=== PATIENT | female | born 1975 | race Caucasian/White ===

== ENCOUNTER 2017-05-08 09:15 | Emergency (ER) | payer MEDICARE ==
[2017-05-08 09:26] VITALS: BP 128/77
--- NOTE | 2017-05-08 09:49 | ER Document Report ---
HPI - HPI Patient complains to provider of: Sinus congestion Pain Level: 3 Context: Patient is a 41-year-old female presents emergency department complaining of 5 days of sinus drainage that is dao in color with hot flashes and chills but denies any fevers. Otherwise she states she is a history of sinus infections that usually responds to edae-hyn-ipiyjyb cold medications and antibiotics. Patient otherwise denies any other ear pain, cough, difficulty breathing, chest pain, nausea or vomiting. Patient does have a history of rheumatoid arthritis and fibromyalgia. Past Medical History - Social History Smoking Status: Never Smoker Family History: Reviewed & Not Pertinent Vertical Provider Document - CONSTITUTIONAL Notes: PHYSICAL EXAM GENERAL: Alert, interacts well. HEENT: NCAT, pale conjunctiva, extraocular movements intact, pupils PERRL. external ear normal, no evidence of external auditory canal tenderness, blood/ drainage, cerumen impaction, TM intact without evidence of effusion, bulging, injection, MMM bilateral maxillary sinus tenderness without erythema.. NECK: Full range of motion. Supple. Trachea midline. LUNGS: Clear to auscultation bilaterally, no wheezes, rales, or rhonchi. No respiratory distress. HEART: Regular rate and rhythm. No murmurs, gallops, or rubs. ABDOMEN: Soft, nondistended, nontender. No guarding, rebound, or rigidity.. Bowel sounds present in all 4 quadrants. EXTREMITIES: Moves all 4 extremities spontaneously. No edema, radial and dorsalis pedis pulses 2/4 bilaterally. No cyanosis. NEUROLOGICAL: Alert and oriented x4. Normal speech. PSYCH: Normal affect, normal mood. SKIN: Warm, dry, normal turgor. No rashes or lesions noted. - INFECTION CONTROL TRAVEL OUTSIDE OF THE [place] IN LAST 30 DAYS: No - RESPIRATORY O2 Sat by Pulse Oximetry: 97 Course - Re-evaluation Re-evalutation: 05/08/17 9:45 Patient is a 41-year-old female who is hemodynamically stable, no acute distress afebrile. Patient states that this is consistent with her previous early presentations of the sinus infection. Will discharge home with a Z-Bradley. Otherwise discussed with patient [id number] management of nasal congestion and to follow-up with primary care. Discussed strict return precautions and patient is stable for discharge - Vital Signs Vital signs: Temp Pulse Resp BP Pulse Ox 98.1 F 74 20 128/77 H 97 05/08/17 09:25 05/08/17 09:25 05/08/17 09:25 05/08/17 09:25 05/08/17 09:25 Discharge - Discharge Clinical Impression: Sinus congestion Condition: Good Disposition: HOME, SELF-CARE Instructions: Sinusitis ([facility]) Prescriptions: Azithromycin [Zithromax 250 mg Tablet] 250 mg PO ASDIR PRN #6 tablet PRN Reason: Referrals: ELGIN GARCIA MD [[facility]] - Follow up in 1 week
== END 2017-05-08 09:54 | disposition home or self-care (01) ==
LOC: ER 09:15
DX: R09.81 Nasal congestion (principal)
CPT/HCPCS: 99283

== ENCOUNTER 2017-09-04 14:22 | Emergency (ER) | payer MEDICARE ==
--- NOTE | 2017-09-04 14:48 | ER Document Report ---
HPI - HPI Pain Level: 4 Notes: Patient is a 41-year-old female with a history of chronic knee pain and arthritis in her knee who presents to the ED complaining of pain behind her patella when she tries to straighten her leg. Patient states that she currently cannot straighten her leg because of the sharp pain and feels like it is stuck. Patient states that she did have laparoscopic surgeries in the past and was told that she may need a knee replacement, but she is too young at this time. Patient states that the pain will sometimes radiate to the right lateral side as well as posteriorly. Patient states that she is still able to limp around and weight-bear. She has not noticed any redness or swelling. She denies any recent illness. She denies any hormone replacement, recent surgery/ trauma, previous DVT/PE. patient does admit to smoking but denies IV drug use. She has no other concerns or complaints at this time. Patient moved from [place] recently to the area. Denies any headache, fever, URI, sore throat , chest pain, palpitations, syncope, cough, shortness of breath, wheeze, dyspnea , abdominal pain, nausea/vomiting/diarrhea, urinary retention, dysuria, hematuria, back pain, loss of control of bowel or bladder, numbness/tingling, saddle anesthesia, muscle paralysis/weakness, or rash. - ROS Systems Reviewed and Negative: Yes All other systems reviewed and negative Past Medical History - Social History Smoking Status: Current Some Day Smoker Family History: Reviewed & Not Pertinent Renal/ Medical History: Denies: Hx Peritoneal Dialysis Past Surgical History: Reports: Hx Cholecystectomy, Hx Hysterectomy, Hx Orthopedic Surgery - Right knee Vertical Provider Document - CONSTITUTIONAL Agree With Documented VS: Yes Notes: PHYSICAL EXAMINATION: GENERAL: Well-appearing, well-nourished and in no acute distress. LUNGS: Breath sounds clear to auscultation bilaterally and equal. No wheezes rales or rhonchi. HEART: Regular rate and rhythm without murmurs, rubs, gallops. Musculoskeletal: Rt knee: No erythema, swelling, or ecchymosis. The bones are not smooth around the border which most likely indicates arthritic changes. LROM to passive/active extension. Strength 5+/5. Saniya grossly negative. Ligaments grossly intact. Upon trying to place her in full extension, pt experienced pain described below her patella and could not allow for full extension. Pt is extending to approx 160 degrees otherwise. Pt noted to be able to weight bear with a slight limp. Fahad neg b/l. No calf erythema/ swelling/asymmetry. N/V intact distal. Extremities: No cyanosis, clubbing, or edema b/l. Peripheral pulses 2+. Capillary refill less than 3 seconds. NEUROLOGICAL: Normal speech. Normal sensory, motor exams PSYCH: Normal mood, normal affect. SKIN: Warm, Dry, normal turgor, no rashes or lesions noted. - INFECTION CONTROL TRAVEL OUTSIDE OF THE [place] IN LAST 30 DAYS: No Course - Re-evaluation Re-evalutation: 09/04/17 16:22 Patient is an afebrile, well-hydrated, 41-year-old female who presents to the ED with right knee pain, suspect secondary to arthritis. Vitals are acceptable. PE is otherwise unremarkable for any neurovascular compromise, obvious tendon/ligament rupture, obvious fracture/dislocation, septic joint, DVT. X-ray was unremarkable for any acute pathology aside from severe arthritis. Patient declined a knee immobilizer as well as crutches today as she has them at home. Recommend conservative measures otherwise for symptoms. Call orthopedics to schedule an appointment for further evaluation and management. Recheck with your PCM in 3-5 days as well. Return to the ED with any worsening/concerning symptoms otherwise as reviewed discharge. Patient is in agreement. - Vital Signs Vital signs: Temp Pulse Resp BP Pulse Ox 98.3 F 80 16 153/87 H 98 09/04/17 14:29 09/04/17 14:29 09/04/17 14:29 09/04/17 14:29 09/04/17 14:29 Discharge - Discharge Clinical Impression: Right knee pain Qualifiers: Chronicity: acute Qualified Code(s): M25.561 - Pain in right knee Condition: Stable Disposition: HOME, SELF-CARE Additional Instructions: Rest, Ice, Compression, Elevation Use splint at home as needed Tylenol/ibuprofen as needed Light stretches daily Strength exercises as able Moist heat and massage may help F/u with your PCP in 3-5 days for a recheck Call orthopedics to schedule an appointment for further evaluation and management Return to the ED with any worsening symptoms and/or development of fever, headache, chest pain, palpitations, syncope, shortness of breath, trouble breathing, abdominal pain, n/v/d, muscle weakness/paralysis, numbness/tingling, swelling, redness, or other worsening symptoms that are concerning to you. Forms: Elevated Blood Pressure Referrals: [facility] [Provider Group] - Follow up in 3-5 days
--- NOTE | 2017-09-04 16:02 | RADIOLOGY REPORT (SQ) ---
EXAM DESCRIPTION: KNEE RIGHT 4 VIEWS COMPLETED DATE/TIME: 09/04/2017 3:26 pm REASON FOR STUDY: right knee pain COMPARISON: None. NUMBER OF VIEWS: Four views. TECHNIQUE: AP, lateral, and both oblique radiographic images acquired of the right knee. LIMITATIONS: None. FINDINGS: MINERALIZATION: Normal. BONES: No acute fracture or dislocation. No worrisome bone lesions. JOINT: Severe joint space loss involving medial compartment with subchondral sclerosis and small oste ophytes. Mild degenerative changes involving the lateral compartment and the patellofemoral joint. No significant effusion. SOFT TISSUES: No soft tissue swelling. No radio-opaque foreign body. OTHER: No other significant finding. IMPRESSION: Severe degenerative changes involving the medial compartment with mild degenerative castillo ges involving the lateral compartment and patellofemoral joint. TECHNICAL DOCUMENTATION: JOB ID: [id number] [employer]- All Rights Reserved Reading location - IP/workstation name: [email or web address]
[2017-09-04 16:32] VITALS: BP 129/73
== END 2017-09-04 16:18 | disposition home or self-care (01) ==
LOC: ER 14:22
DX: M17.11 Unilateral primary osteoarthritis, right knee (principal); M25.561 Pain in right knee; Z98.890 Other specified postprocedural states; F17.200 Nicotine dependence, unspecified, uncomplicated
CPT/HCPCS: 99283